=== PATIENT | female | born 1960 | race American Indian/Alaskan Native ===

== ENCOUNTER 2016-10-29 09:19 | Emergency (ER) | payer MEDICARE, MEDICAID ==
[2016-10-29 09:49] VITALS: TEMP 98.1
--- NOTE | 2016-10-29 09:53 | C.PDOC ---
History Of Present Illness 55 yr old female with PMHx of chronic back pain and alcohol abuse, presents to the ER stating she has been suffering back pain on and off for the past several days. Patient states she has been sober until yesterday when she started drinking again and was found by her son in bed with alcohol and Tramadol pills as per EMS. Patient denies nausea, vomiting, abdominal pain, diarrhea, dysuria, incontinence, weakness or numbness. Time Seen by Provider: 10/29/16 09:34 Chief Complaint (Nursing): Back Pain History Per: Patient History/Exam Limitations: no limitations Onset/Duration Of Symptoms: Intermittent Episodes (Several weeks) Current Symptoms Are (Timing): Still Present Quality Of Discomfort: Sharp Pain Scale Rating Of: 7 Associated Symptoms: denies: Incontinence, New Weakness, New Numbness Exacerbating Factor(s): Turning, Movement Recent travel outside of the [place]: No Past Medical History Reviewed: Historical Data, Nursing Documentation, Vital Signs Vital Signs: Last Vital Signs Temp 98.1 F 10/29/16 09:37 Pulse 105 H 10/29/16 10:40 Resp 18 10/29/16 10:40 BP 123/75 10/29/16 10:40 Pulse Ox 97 10/29/16 11:13 - Medical History PMH: Anxiety, Depression, HTN Surgical History: Back Surgery Family History: States: No Known Family Hx - Social History Hx Tobacco Use: No Hx Alcohol Use: Yes (drinks wine occasionally) Hx Substance Use: No - Immunization History Hx Tetanus Toxoid Vaccination: No Hx Influenza Vaccination: No Hx Pneumococcal Vaccination: No Review Of Systems Except As Marked, All Systems Reviewed And Found Negative. Gastrointestinal: Negative for: Nausea, Vomiting, Abdominal Pain, Diarrhea Genitourinary: Negative for: Dysuria, Incontinence Musculoskeletal: Positive for: Back Pain Neurological: Negative for: Weakness, Numbness Physical Exam - Physical Exam Appears: Non-toxic, No Acute Distress, Other ((+) Alcohol on breath ) Skin: Warm, Dry, No Rash Head: Atraumatic, Normacephalic Eye(s): bilateral: Normal Inspection, PERRL, EOMI Oral Mucosa: Moist Neck: Normal ROM, Supple Chest: Symmetrical, No Tenderness Cardiovascular: Rhythm Regular, No Friction Rub, No Murmur Respiratory: Normal Breath Sounds, No Rales, No Rhonchi, No Wheezing Gastrointestinal/Abdominal: Normal Exam, Soft, No Tenderness, No Guarding, No Rebound Back: Normal Inspection, No CVA Tenderness Extremity: Normal ROM, No Swelling Neurological/Psych: Oriented x3, Normal Speech, Normal Motor Gait: Steady ED Course And Treatment O2 Sat by Pulse Oximetry: 97 (on RA) Pulse Ox Interpretation: Normal Medical Decision Making Medical Decision Making: NOTE: * Upon second questioning, patient reports she took 2 Tramadols for her back pain, 1 Ambien and Vodka. * Patient had a lunch tray and tolerated po well. On re-exam, the patient reports improvement of symptoms. A&O x 3, Ambulatory in the ED with steady gait, normal speech. Lungs are CTA, heart is RRR, abdomen is soft, non-tender and tolerating PO well. Follow up with the medical doctor/ medical clinic within 1-2 days. Return if worsened. Disposition - Disposition Referrals: [facility] [Outside] Disposition: HOME/ ROUTINE Disposition Time: 11:06 Condition: GOOD Additional Instructions: On re-exam, the patient reports improvement of symptoms. A&O x 3, Ambulatory in the ED with steady gait, normal speech. Lungs are CTA, heart is RRR, abdomen is soft, non-tender and tolerating PO well. Follow up with the medical doctor/ medical clinic within 1-2 days. Return if worsened. Prescriptions: Lidocaine 5% [Lidoderm] 1 patch TOP DAILY PRN #7 patch PRN Reason: Back pain Naproxen [Naprosyn] 500 mg PO BID #20 tab predniSONE [Prednisone] 10 mg PO BID #10 tab Instructions: Acute Low Back Pain (ED) - Clinical Impression Clinical Impression: Low back pain - PA / GED INSTRUCTOR / Resident Statement MD/DO has reviewed & agrees with the documentation as recorded. - Scribe Statement The provider has reviewed the documentation as recorded by the Scribe Saloni Durbin All medical record entries made by the Scribe were at my direction and personally dictated by me. I have reviewed the chart and agree that the record accurately reflects my personal performance of the history, physical exam, medical decision making, and the department course for this patient. I have also personally directed, reviewed, and agree with the discharge instructions and disposition.
[2016-10-29] MEDS ORDERED: Dexamethasone 4 mg/1 ml IM STA (09:59)
[2016-10-29] MEDS ORDERED: Lidocaine 5% Patch TD STA (09:59)
[2016-10-29] MEDS ORDERED: Lidocaine 5% Patch TD ONE (10:23)
[2016-10-29] MEDS ORDERED: Dexamethasone 4 mg/1 ml ONE (10:23)
[2016-10-29 10:42] VITALS: BP 123/75; PULSE 105; RESP 18
[2016-10-29 11:09] VITALS: O2SAT 97
== END 2016-10-29 11:35 | disposition home or self-care (01) ==
LOC: C.ER 09:19
DX: M54.5 Low back pain (principal)
CPT/HCPCS: 96372; 99285; J1100; J1885

== ENCOUNTER 2016-12-23 20:30 | Emergency (ER) | payer MEDICARE, MEDICAID ==
[2016-12-23 20:50] VITALS: BP 163/92; PULSE 69; RESP 20; TEMP 98.1; O2SAT 98
--- NOTE | 2016-12-23 21:10 | C.PDOC ---
History Of Present Illness 56 year old female who presents to the ER with a complaint of chest and back pain for the past 2 days. Patient is on an extensive narcotic regiment at home for chronic body pains. Denies SOB, nausea, vomiting, weakness, or numbness. Time Seen by Provider: 12/23/16 21:01 Chief Complaint (Nursing): Chest Pain History Per: Patient History/Exam Limitations: no limitations Onset/Duration Of Symptoms: Days Current Symptoms Are (Timing): Still Present Associated Symptoms: denies: Nausea, Dyspnea, Diaphoresis, Syncope Modifying Factors: None Exacerbating Factors: None Alleviating Factors: None Recent travel outside of the [place]: No Past Medical History Reviewed: Historical Data, Nursing Documentation, Vital Signs Vital Signs: Last Vital Signs Temp 98.1 F 12/23/16 20:40 Pulse 69 12/23/16 20:40 Resp 20 12/23/16 20:40 BP 163/92 H 12/23/16 20:40 Pulse Ox 98 12/23/16 21:10 - Medical History PMH: Anxiety, Depression, HTN Surgical History: Back Surgery Family History: States: Unknown Family Hx - Social History Hx Tobacco Use: No Hx Alcohol Use: Yes (drinks wine occasionally) Hx Substance Use: No - Immunization History Hx Tetanus Toxoid Vaccination: No Hx Influenza Vaccination: No Hx Pneumococcal Vaccination: No Review Of Systems Constitutional: Negative for: Fever, Chills Cardiovascular: Positive for: Chest Pain. Negative for: Palpitations Musculoskeletal: Positive for: Back Pain Neurological: Negative for: Weakness, Numbness Physical Exam - Physical Exam Appears: Non-toxic, No Acute Distress Skin: Normal Color, Warm, Dry Head: Atraumatic, Normacephalic Oral Mucosa: Moist Chest: Symmetrical, Tenderness (Digitally and positionally reproducible) Cardiovascular: Rhythm Regular, No Murmur Respiratory: Normal Breath Sounds, No Rales, No Rhonchi, No Wheezing Gastrointestinal/Abdominal: Soft, No Tenderness Neurological/Psych: Oriented x3, Normal Speech, Normal Cognition ED Course And Treatment ECG: Interpreted By Me ECG Rhythm: Sinus Rhythm, R BBB ECG Interpretation: Normal, No Changes From Prior Rate From EC O2 Sat by Pulse Oximetry: 98 Progress Note: EKG ordered. Medical Decision Making Medical Decision Making: chronic chest wall and back discomforts, many prior presentations for same. positionally reproducable pt with poor insight to same chronic pains and pain meds. Disposition Doctor Will See Patient In The: Office Counseled Patient/Family Regarding: Studies Performed, Diagnosis - Disposition Referrals: Adela Severino MD [Medical Doctor] - Disposition: HOME/ ROUTINE Disposition Time: 21:09 Condition: GOOD Additional Instructions: continue your usual pain regimen follow-up with your PMD as needed. Instructions: Chronic Pain (ED) Forms: [employer] ([place]) - Clinical Impression Clinical Impression: Chest wall discomfort - Scribe Statement The provider has reviewed the documentation as recorded by the Scribeddy Holland All medical record entries made by the Scribe were at my direction and personally dictated by me. I have reviewed the chart and agree that the record accurately reflects my personal performance of the history, physical exam, medical decision making, and the department course for this patient. I have also personally directed, reviewed, and agree with the discharge instructions and disposition.
--- NOTE | 2016-12-25 11:41 | CARD ---
APPROVED REPORT EKG Measurement Heart [id number] <Conclusion> Normal sinus rhythm Right bundle branch block Abnormal ECG
== END 2016-12-23 21:19 | disposition home or self-care (01) ==
LOC: C.ER 20:30
DX: R07.89 Other chest pain (principal); I10 Essential (primary) hypertension

== ENCOUNTER 2018-08-24 09:00 | Outpatient (CLI) | payer MEDICARE | END 2018-08-24 09:01 | disposition home or self-care (01) | LOC: C.MAMMO 09:00 ==